=== PATIENT | male | born 1975 | race African-American/Black ===

== ENCOUNTER 2017-04-10 20:51 | Emergency (ER) | payer OTHER ==
[~2017-04-10] VITALS: Ht 175.3 cm; Wt 56.8 kg
[2017-04-10] MEDS ORDERED: IBUPROFEN 800 MG TABLET PO ONE (22:30)
[2017-04-10] MEDS ORDERED: CefTRIAXone SODIUM 1 GM/VIAL IM ONE (23:00)
[2017-04-10] MEDS ORDERED: LIDOCAINE HCL/PF 1% 2 ML VIAL IM ONE (23:00)
[2017-04-10 23:09] VITALS: BP 125/71
== END 2017-04-10 23:12 | disposition home or self-care (01) ==
LOC: EMS 20:53
DX: L03.115 Cellulitis of right lower limb (principal)
CPT/HCPCS: 73562; 96372; 99284; J0696; J3490

== ENCOUNTER 2017-04-13 20:38 | Emergency (ER) | payer OTHER ==
[~2017-04-13] VITALS: Ht 175.3 cm; Wt 65.9 kg
[2017-04-13] MEDS ORDERED: POVIDONE-IODINE 10% 15 ML SOLUTION UD TP ONE (23:00)
[2017-04-13] MEDS ORDERED: LIDOCAINE HCL BUFFERED 1% 20 ML VIAL INJ ONE (23:00)
[2017-04-13] MEDS ORDERED: CefTRIAXone SODIUM 1 GM/VIAL IM ONE (23:15)
[2017-04-13] MEDS ORDERED: LIDOCAINE HCL/PF 1% 2 ML VIAL IM ONE (23:15)
[2017-04-13 23:26] VITALS: BP 126/88
== END 2017-04-13 23:33 | disposition home or self-care (01) ==
LOC: EMS 20:51
DX: L02.415 Cutaneous abscess of right lower limb (principal); L03.115 Cellulitis of right lower limb
CPT/HCPCS: 10060; 87070; 87205; 96372; 99284; J0696; J3490 ×2

== ENCOUNTER 2017-04-25 18:04 | Emergency (ER) | payer OTHER ==
[~2017-04-25] VITALS: Ht 175.3 cm; Wt 63.6 kg
[2017-04-25 18:25] VITALS: BP 127/86
== END 2017-04-25 18:34 | disposition home or self-care (01) ==
LOC: EMS 18:06
DX: Z48.00 Encounter for change or removal of nonsurgical wound dressing (principal)
CPT/HCPCS: 99281

== ENCOUNTER 2017-04-29 23:26 | Emergency (ER) | payer OTHER ==
[~2017-04-29] VITALS: Ht 175.3 cm; Wt 54.5 kg
[2017-04-29 23:47] VITALS: BP 145/88
[2017-04-29 23:58] LABS: BASOPHILS % (AUTO) 0.4 % (0.0-2.0); EOSINOPHILS % (AUTO) 1.1 % (1.0-6.0); HEMATOCRIT 38.8 % (41-53); HEMOGLOBIN 12.6 g/dL (13.5-17.5); LYMPHOCYTES # (AUTO) 1.9 K/uL (1.0-4.8); LYMPHOCYTES % (AUTO) 26.6 % (22.0-44.0); MEAN CORPUSCULAR HEMOGLOBIN 29.7 pg (26.0-34.0); MEAN CORPUSCULAR HGB CONC 32.6 G/dL (31.0-37.0); MEAN CORPUSCULAR VOLUME 91 fL (80-100); MONOCYTES # (AUTO) 0.5 K/uL (0.1-1.0); MONOCYTES % (AUTO) 7.1 % (2.0-9.0); NEUTROPHILS # (AUTO) 4.6 K/uL (1.8-7.7); NEUTROPHILS % (AUTO) 64.8 % (40.0-70.0); PLATELET COUNT (AUTO) 306 K/uL (150-450); RED BLOOD CELL COUNT(AUTO) 4.25 MIL/uL (4.50-5.90); RED CELL DISTRIBUTION WIDTH 13.3 % (11.5-14.5); WHITE BLOOD COUNT (AUTO) 7.2 K/uL (4.5-11.0)
[2017-04-30 00:34] LABS: ANION GAP 9 mmol/L (8-16); CALCIUM, TOTAL 9.4 mg/dL (8.8-10.5); CARBON DIOXIDE 26 mmol/L (22-29); CHLORIDE 101 mmol/L (98-107); CREATININE 0.98 mg/dL (0.60-1.30); GLOMERULAR FILTR. RATE CALC > 60 mL/min (>60); POTASSIUM 3.2 mmol/L (3.5-5.1); SODIUM SERUM 136 mmol/L (136-145); UREA NITROGEN, BLOOD 13 mg/dL (7-18)
[2017-04-30 00:42] LABS: ALANINE AMINOTRANSFERASE 42 U/L (12-78); ASPARTATE AMINOTRANSFERASE 36 U/L (15-37); BILIRUBIN,TOTAL 0.4 mg/dL (0.1-1.0); TOTAL PROTEIN, SERUM 7.5 g/dL (6.4-8.2)
== END 2017-04-30 01:39 | disposition home or self-care (01) ==
LOC: EMS 23:26
DX: F25.9 Schizoaffective disorder, unspecified (principal); I10 Essential (primary) hypertension; R46.89 Other symptoms and signs involving appearance and behavior; F17.210 Nicotine dependence, cigarettes, uncomplicated
CPT/HCPCS: 36415; 80053; 85025; 99285; 99406; G0480

== ENCOUNTER 2017-11-29 16:39 | Emergency (ER) | payer OTHER | END 2017-11-29 17:41 | disposition left against medical advice (07) | LOC: EMS 16:41 | DX: Z53.21 Procedure and treatment not carried out due to patient leaving prior to being seen by health care provider (principal) ==

== ENCOUNTER 2019-12-07 06:35 | Emergency (ER) | payer SELFPAY ==
[~2019-12-07] VITALS: Ht 170.2 cm; Wt 70.0 kg
[~2019-12-07 06:35] MED LIST: RISP2 PO
[2019-12-07 06:50] VITALS: BP 141/88
[2019-12-07] MEDS ORDERED: BACITRACIN 0.9 GM PACKET OINTMENT TP ONE (07:00)
== END 2019-12-07 08:22 | disposition home or self-care (01) ==
LOC: EMS 06:36
DX: S00.81XA Abrasion of other part of head, initial encounter (principal); F31.9 Bipolar disorder, unspecified; F25.9 Schizoaffective disorder, unspecified; H57.02 Anisocoria; F17.210 Nicotine dependence, cigarettes, uncomplicated; F12.90 Cannabis use, unspecified, uncomplicated; Y35.811A Legal intervention involving manhandling, law enforcement official injured, initial encounter; Y93.89 Activity, other specified; Y92.89 Other specified places as the place of occurrence of the external cause; Y99.8 Other external cause status

== ENCOUNTER 2020-07-04 17:07 | Emergency (ER) | payer MEDICAID ==
[~2020-07-04] VITALS: Ht 175.3 cm; Wt 63.6 kg
[~2020-07-04 17:07] MED LIST changes: -RISP2 PO; +RISP2TAB23 PO
[2020-07-04 18:01] VITALS: BP 151/85
== END 2020-07-04 18:28 | disposition home or self-care (01) ==
LOC: EMS 17:09
DX: L03.012 Cellulitis of left finger (principal); F17.210 Nicotine dependence, cigarettes, uncomplicated
CPT/HCPCS: 99283; Z7502

== ENCOUNTER 2020-08-07 08:50 | Emergency (ER) | payer MEDICAID ==
[~2020-08-07] VITALS: Ht 175.3 cm; Wt 81.8 kg
[2020-08-07 08:54] VITALS: BP 130/79
[2020-08-07] MEDS ORDERED: POVIDONE-IODINE 10% 15 ML SOLUTION UD TP ONE (10:00)
== END 2020-08-07 10:07 | disposition home or self-care (01) ==
LOC: EMS 08:52
DX: S61.306A Unspecified open wound of right little finger with damage to nail, initial encounter (principal); F17.210 Nicotine dependence, cigarettes, uncomplicated; W57.XXXA Bitten or stung by nonvenomous insect and other nonvenomous arthropods, initial encounter; Y93.89 Activity, other specified; Y92.89 Other specified places as the place of occurrence of the external cause; Y99.8 Other external cause status
CPT/HCPCS: Z7502

== ENCOUNTER 2021-05-02 01:28 | Emergency (ER) | payer MEDICAID ==
[~2021-05-02] VITALS: Ht 175.3 cm; Wt 65.9 kg
[2021-05-02] MEDS ORDERED: LIDOCAINE/PF 1% 2 ML VIAL IM ONE (02:15)
[2021-05-02] MEDS ORDERED: CefTRIAXone SODIUM 1 GM/VIAL IM ONE (02:15)
[2021-05-02] MEDS ORDERED: AZITHROMYCIN 500 MG TABLET PO ONE (02:15)
[2021-05-02 04:15] VITALS: BP 132/84
[2021-05-02 04:17] LABS: APPEARANCE,URINE CLOUDY (CLEAR); BILIRUBIN,URINE NEGATIVE (NEGATIVE); GLUCOSE, URINE (UA) NEGATIVE (NEGATIVE); KETONES,URINE NEGATIVE (NEGATIVE); LEUKOCYTE ESTERASE ,URINE MODERATE (NEGATIVE); NITRATE,URINE NEGATIVE (NEGATIVE); OCCULT BLOOD,URINE SMALL (NEGATIVE); PROTEIN,URINE NEGATIVE (NEGATIVE); UROBILINOGEN,URINE 0.2 mg/dL (<=1.0)
[2021-05-02 04:27] LABS: BACTERIA,URINE Moderate /HPF (None Seen); SQUAMOUS EPITHELIAL CELL,UR Few /LPF (None Seen); WBC,URINE Full Field /HPF (0-5)
[2021-05-02 04:29] LABS: BACTERIA,URINE Moderate /HPF (None Seen); SQUAMOUS EPITHELIAL CELL,UR Few /LPF (None Seen); WBC,URINE Full Field /HPF (0-5)
== END 2021-05-02 04:27 | disposition home or self-care (01) ==
LOC: EMS 01:29
DX: N34.2 Other urethritis (principal); F17.210 Nicotine dependence, cigarettes, uncomplicated; F12.90 Cannabis use, unspecified, uncomplicated
CPT/HCPCS: 81001; 81002; 87086; 87591; 96372; 99283; A9575; J0696; J3490

== ENCOUNTER 2021-10-27 21:18 | Emergency (ER) | payer MEDICAID ==
[~2021-10-27] VITALS: Ht 175.3 cm; Wt 65.9 kg
[2021-10-27 21:20] VITALS: BP 117/62
[2021-10-27] MEDS ORDERED: PERTUSS(ACELL),DIPH,TET VAC/PF 0.5 ML SYRINGE IM. ONE (22:00)
== END 2021-10-27 22:48 | disposition home or self-care (01) ==
LOC: EMS 21:18
DX: S01.81XA Laceration without foreign body of other part of head, initial encounter (principal); F17.210 Nicotine dependence, cigarettes, uncomplicated; F12.90 Cannabis use, unspecified, uncomplicated; W45.8XXA Other foreign body or object entering through skin, initial encounter; Y93.89 Activity, other specified; Y92.89 Other specified places as the place of occurrence of the external cause; Y99.8 Other external cause status
CPT/HCPCS: 90471; 90715; 99283

== ENCOUNTER 2021-12-12 20:12 | Emergency (ER) | payer MEDICAID ==
[~2021-12-12] VITALS: Ht 175.3 cm; Wt 70.5 kg
[2021-12-12] MEDS ORDERED: ACETAMINOPHEN 500 MG TABLET PO ONE (20:30)
[2021-12-12] MEDS ORDERED: BACITRACIN 0.9 GM PACKET OINTMENT TP ONE (20:30)
[2021-12-12 22:15] VITALS: BP 112/63
== END 2021-12-12 23:07 | disposition home or self-care (01) ==
LOC: EMS 20:14
DX: S01.112A Laceration without foreign body of left eyelid and periocular area, initial encounter (principal); S09.90XA Unspecified injury of head, initial encounter; F12.90 Cannabis use, unspecified, uncomplicated; F17.210 Nicotine dependence, cigarettes, uncomplicated; Y04.0XXA Assault by unarmed brawl or fight, initial encounter; Y93.89 Activity, other specified; Y92.89 Other specified places as the place of occurrence of the external cause; Y99.8 Other external cause status
CPT/HCPCS: 12011; 70450; 70486; 99284

== ENCOUNTER 2022-07-01 12:50 | Emergency (ER) | payer MEDICAID ==
[~2022-07-01] VITALS: Ht 175.3 cm; Wt 61.3 kg
[2022-07-01] MEDS ORDERED: IBUPROFEN 600 MG TABLET PO ONE (14:00)
[2022-07-01 14:57] VITALS: BP 122/71
[2022-07-01] MEDS ORDERED: IBUP-2070 PO (15:00)
== END 2022-07-01 17:07 | disposition home or self-care (01) ==
LOC: EMS 12:53
DX: S20.212A Contusion of left front wall of thorax, initial encounter (principal); S80.01XA Contusion of right knee, initial encounter; F12.90 Cannabis use, unspecified, uncomplicated; Z86.59 Personal history of other mental and behavioral disorders; W19.XXXA Unspecified fall, initial encounter; Y93.89 Activity, other specified; Y92.89 Other specified places as the place of occurrence of the external cause; Y99.8 Other external cause status
CPT/HCPCS: 71101; 99284; 73562-TC; Z7502; Z7610

== ENCOUNTER 2022-07-18 17:25 | Emergency (ER) | payer MEDICAID ==
[~2022-07-18] VITALS: Ht 175.3 cm; Wt 66.0 kg
[~2022-07-18 17:25] MED LIST changes: +IBUP-2070 PO; -RISP2TAB23 PO
[2022-07-18] MEDS ORDERED: SULF-261 PO (19:26)
[2022-07-18 19:52] VITALS: BP 114/67
== END 2022-07-18 20:01 | disposition home or self-care (01) ==
LOC: EMS 17:35
DX: L03.818 Cellulitis of other sites (principal); F12.90 Cannabis use, unspecified, uncomplicated; Z79.899 Other long term (current) drug therapy
CPT/HCPCS: 99283; Z7502

== ENCOUNTER 2022-09-07 21:52 | Emergency (ER) | payer MEDICAID ==
[~2022-09-07] VITALS: Ht 175.3 cm; Wt 59.1 kg
[~2022-09-07 21:52] MED LIST changes: -IBUP-2070 PO; +SULF-261 PO
[2022-09-07 22:03] VITALS: BP 113/75
[2022-09-07] MEDS ORDERED: DOXY-354 PO (22:40)
[2022-09-07] MEDS ORDERED: BACITRACIN 0.9 GM PACKET OINTMENT TP ONE (22:45)
[2022-09-07] MEDS ORDERED: ACETAMINOPHEN 500 MG TABLET PO ONE (22:45)
[2022-09-07] MEDS ORDERED: DOXYCYCLINE HYCLATE 100 MG TABLET PO ONE (22:45)
== END 2022-09-08 01:00 | disposition home or self-care (01) ==
LOC: EMS 21:53
DX: S51.802A Unspecified open wound of left forearm, initial encounter (principal); F17.210 Nicotine dependence, cigarettes, uncomplicated; X58.XXXA Exposure to other specified factors, initial encounter; Y93.89 Activity, other specified; Y92.89 Other specified places as the place of occurrence of the external cause; Y99.8 Other external cause status; Z98.890 Other specified postprocedural states
CPT/HCPCS: 99283; 99284

== ENCOUNTER 2022-09-17 12:20 | Emergency (ER) | payer MEDICAID ==
[~2022-09-17] VITALS: Ht 175.3 cm; Wt 61.4 kg
[~2022-09-17 12:20] MED LIST changes: +DIVA-112 PO; +RISP3TAB63 PO; -SULF-261 PO
[2022-09-17 14:04] VITALS: BP 142/89
== END 2022-09-17 16:30 | disposition home or self-care (01) ==
LOC: EMS 12:20
DX: F20.9 Schizophrenia, unspecified (principal); F10.20 Alcohol dependence, uncomplicated; F17.210 Nicotine dependence, cigarettes, uncomplicated
CPT/HCPCS: 99285; Z7502

== ENCOUNTER 2022-11-27 14:27 | Emergency (ER) | payer MEDICAID ==
[~2022-11-27] VITALS: Ht 175.3 cm; Wt 81.8 kg
[2022-11-27 16:49] VITALS: BP 147/75
[2022-11-27] MEDS ORDERED: NALO4SPR NASAL (17:29)
== END 2022-11-27 17:41 | disposition home or self-care (01) ==
LOC: EMS 14:29
DX: T65.91XA Toxic effect of unspecified substance, accidental (unintentional), initial encounter (principal); F17.210 Nicotine dependence, cigarettes, uncomplicated; F11.90 Opioid use, unspecified, uncomplicated; F15.90 Other stimulant use, unspecified, uncomplicated; F20.9 Schizophrenia, unspecified; Y92.89 Other specified places as the place of occurrence of the external cause
CPT/HCPCS: 99284

== ENCOUNTER 2024-06-21 08:29 | Emergency (ER) | payer MEDICAID, OTHER ==
[~2024-06-21] VITALS: Ht 177.8 cm; Wt 75.0 kg
[~2024-06-21 08:29] MED LIST changes: +NALO4SPR NASAL; -RISP3TAB63 PO; +RISP3TAB77 PO
[2024-06-21 08:34] VITALS: TEMP 98.2
[2024-06-21 09:00] VITALS: BP 125/80; PULSE 88; RESP 14
== END 2024-06-21 09:13 ==
LOC: EMS 08:36
DX: F25.0 Schizoaffective disorder, bipolar type (principal); F69 Unspecified disorder of adult personality and behavior; F94.0 Selective mutism; F10.11 Alcohol abuse, in remission; F17.210 Nicotine dependence, cigarettes, uncomplicated; F15.10 Other stimulant abuse, uncomplicated; Z79.899 Other long term (current) drug therapy; Y90.6 Blood alcohol level of 120-199 mg/100 ml
CPT/HCPCS: 82962; 99283